=== PATIENT | male | born 1945 | race Native Hawaiian/Other Pacific Islander ===

== ENCOUNTER 2024-12-17 10:43 | Observation (INO) | payer MEDICARE, OTHER ==
--- NOTE | 2024-12-17 11:12 | ED ---
General Adult HPI - General Chief complaint: Chest Pain Stated complaint: Chest Pain Time Seen by Provider: 12/17/24 10:51 Source: patient Mode of arrival: wheelchair Limitations: no limitations - History of Present Illness Initial comments: Dictation was produced using [employer] dictation software. please excuse any grammatical, word or spelling errors. Chief Complaint: 79-year-old male with coronary artery disease presents to the ER for indigestion chest pain History of Present Illness: Patient 79-year-old male who was in court battling for custody of his daughter. States that today started to have some chest pain. He initially thought it was indigestion. Is like a pressure that was nonradiating. Not associate diaphoresis or nausea. Since being in the ER her symptoms have slowly resolved. Patient denies any radiation of symptoms to the extremities. At the bedside he still does have some mild pressure-like sensation to his left lower chest The ROS documented in this emergency department record has been reviewed and confirmed by me. Those systems with pertinent positive or negative responses have been documented in the HPI. All other systems are other negative and/or noncontributory. - Related Data Allergies Allergy/AdvReac Type Severity Reaction Status Date / Time No Known Allergies Allergy Verified 12/17/24 10:49 Review of Systems ROS Statement: Those systems with pertinent positive or pertinent negative responses have been documented in the HPI. ROS Other: All systems not noted in ROS Statement are negative. Past Medical History Past Medical History: Diabetes Mellitus, Hypertension History of Any Multi-Drug Resistant Organisms: None Reported Additional Past Surgical History / Comment(s): open heart Past Psychological History: No Psychological Hx Reported Smoking Status: Never smoker Past Alcohol Use History: None Reported Past Drug Use History: None Reported General Exam - General Exam Comments Initial Comments: PHYSICAL EXAM: General Impression: Alert and oriented x3, not in acute distress HEENT: Normocephalic atraumatic, extra-ocular movements intact, pupils equal and reactive to light bilaterally, mucous membranes moist. Cardiovascular: Heart regular rate and rhythm Chest: Able to complete full sentences, no retractions, no tachypnea Abdomen: abdomen soft, non-tender, non-distended, no organomegaly Musculoskeletal: Pulses present and equal in all extremities, no peripheral edema Motor: no focal deficits noted Neurological: CN II-XII grossly intact, no focal motor or sensory deficits noted Skin: Intact with no visualized rashes Psych: Normal affect and mood Limitations: no limitations Course Vital Signs 12/17/24 10:44 Temperature 97.6 F Pulse Rate 88 Respiratory 18 Rate Blood Pressure 221/118 O2 Sat by Pulse 96 Oximetry EKG Findings - EKG Comments: EKG Findings:: My EKG interpretation: Ventricular rate 76, sinus rhythm, OH 176, QRS 105, QTc 409. No OH prolongation, no QTC prolongation, no ST or T-wave changes noted. Overall, this EKG is unremarkable Medical Decision Making - Medical Decision Making Was pt. sent in by a medical professional or institution (, PA, CARPENTRY SPECIALIST, urgent c are, hospital, or prison...) When possible be specific @ -No Did you speak to anyone other than the patient for history (EMS, parent, family, police, friend...)? What history was obtained from this source @ -No Did you review nursing and triage notes (agree or disagree)? Why? @ -I reviewed and agree with nursing and triage notes Were old charts reviewed (outside hosp., previous admission, EMS record, old EKG, old radiological studies, urgent care reports/EKG's, prison records)? Report findings @ -No old charts were reviewed Differential Diagnosis (chest pain, altered mental status, abdominal pain women, abdominal pain men, vaginal bleeding, musculoskeletal, weakness, fever, dyspnea, syncope, headache, dizziness, GI bleed, back pain, seizure, CVA, palpatations, mental health)? @ -Differential Chest Pain: Stable Angina, Unstable Angina, STEMI, NSTEMI Aortic Dissection, Pneumothorax, Musculoskeletal, Esophageal Spasm GERD, Cholecystitis, Pancreatitis, Zoster, this is not meant to be an all-inclusive list. EKG interpreted by me (3pts min.). @ -See above X-rays interpreted by me (1pt min.). @ -Chest x-ray is nonacute CT interpreted by me (1pt min.). @ -None done U/S interpreted by me (1pt. min.). @ -None done What testing was considered but not performed or refused? (CT, X-rays, U/S, labs)? Why? @ -None What meds were considered but not given or refused? Why? @ -None Was smoking cessation discussed for >3mins.? @ -No Were there social determinants of health that impacted care today? How? (Homelessness, low income, unemployed, alcoholism, drug addiction, transportation, low edu. Level, literacy, decrease access to med. care, nursing home, rehab)? @ -No Was there de-escalation of care discussed even if they declined (Discuss DNR or withdrawal of care, Hospice)? DNR status @ -No What co-morbidities impacted this encounter? (DM, HTN, Smoking, COPD, CAD, Cancer, CVA, ARF, Chemo, Hep., AIDS, mental health diagnosis, sleep apnea, morbid obesity)? @ -Coronary artery disease Was patient admitted / discharged? Hospital course, mention meds given and rou te, prescriptions, significant lab abnormalities, going to OR and other pertinent info. @ -79-year-old male presents with chest pain. Vital signs upon arrival shows blood pressure of 221/118. Patient symptoms are atypical typical features. States that his pain is resolving. At the bedside at 12:40 PM patient states that his pain is completely resolved. No suspicion for acute aortic dissection given that patient is pain-free at this time. EKG is unremarkable. Laboratory evaluation is within acceptable limits. Troponin is negative. Patient with aspirin will be admitted with consultation cardiology. Patient also given magnesium and labetalol. Did you discuss the management of the patient with other professionals (professionals i.e. , PA, CARPENTRY SPECIALIST, lab, RT, psych nurse, medical social worker, sample card maker, teacher, workplace rehabilitation officer, community case manager)? Give summary @ -Case discussed with hospitalist for admission Was critical care preformed (if so, how long)? @ -No Undiagnosed new problem with uncertain prognosis? @ -No Drug Therapy requiring intensive monitoring for toxicity (Heparin, Nitro, Insu namrata, Cardizem)? @ -No Were any procedures done? @ -No Diagnosis/symptom? Acute, or Chronic, or Acute on Chronic? Uncomplicated (without systemic symptoms) or Complicated (systemic symptoms)? @ -Chest pain Side effects of treatment? @ -No Exacerbation, Progression, or Severe Exacerbation? @ -No Poses a threat to life or bodily function? How? (Chest pain, USA, AR, pneumonia, PE, COPD, DKA, ARF, appy, cholecystitis, CVA, Diverticulitis, Homicidal, Suicidal, threat to staff... and all critical care pts) @ -yes - Lab Data Result diagrams: 12/17/24 11:11 12/17/24 11:11 Lab Results 12/17/24 12/17/24 12/17/24 Range/Units 11:11 11:11 11:11 WBC 6.53 (4.50-10.00) 10*3/uL RBC 4.41 (4.40-5.60) 10*6/uL Hgb 14.8 (13.0-17.0) g/dL Hct 40.5 (39.6-50.0) % MCV 91.8 (80.0-97.0) fL MCH 33.6 H (27.0-32.0) pg MCHC 36.5 (32.0-37.0) g/dL Plt Count 125 L (140-440) 10*3/uL MPV 11.1 (9.5-12.2) fL Immature Gran % (Auto) 0.6 % Neutrophils % 80.3 % Lymphocytes % 11.3 % Monocytes % 6.4 % Eosinophils % 0.9 % Basophils % 0.5 % Immature Gran # 0.04 (0.00-0.04) 10*3/uL Neutrophils # 5.24 (1.80-7.70) 10*3/uL Lymphocytes # 0.74 L (0.90-5.00) 10*3/uL Monocytes # 0.42 (0.20-1.00) 10*3/uL Eosinophils # 0.06 (0.04-0.35) 10*3/uL Basophils # 0.03 (0.00-0.10) 10*3/uL Immature Plt Fraction 3.2 (1.1-6.1) % PT 11.7 (10.0-12.5) sec INR 1.1 (<1.2) APTT 24.9 (22.0-30.0) sec Sodium 145 (137-145) mmol/L Potassium 3.8 (3.5-5.1) mmol/L Chloride 109 H (98-107) mmol/L Carbon Dioxide 26 (22-30) mmol/L Anion Gap 10 mmol/L BUN 10 (9-20) mg/dL Creatinine 0.91 (0.66-1.25) mg/dL Est GFR (CKD-EPI)AfAm >90 (>60 ml/min/1.73 sqM) Est GFR (CKD-EPI)NonAf 81 (>60 ml/min/1.73 sqM) Glucose 201 H (74-99) mg/dL Calcium 9.4 (8.4-10.2) mg/dL Magnesium 1.4 L (1.6-2.3) mg/dL Total Bilirubin 2.1 H (0.2-1.3) mg/dL AST 27 (17-59) U/L ALT 26 (4-49) U/L Alkaline Phosphatase 80 (38-126) U/L Troponin I (0.000-0.034) ng/mL Total Protein 7.5 (6.3-8.2) g/dL Albumin 4.7 (3.5-5.0) g/dL 12/17/24 Range/Units 11:11 WBC (4.50-10.00) 10*3/uL RBC (4.40-5.60) 10*6/uL Hgb (13.0-17.0) g/dL Hct (39.6-50.0) % MCV (80.0-97.0) fL MCH (27.0-32.0) pg MCHC (32.0-37.0) g/dL Plt Count (140-440) 10*3/uL MPV (9.5-12.2) fL Immature Gran % (Auto) % Neutrophils % % Lymphocytes % % Monocytes % % Eosinophils % % Basophils % % Immature Gran # (0.00-0.04) 10*3/uL Neutrophils # (1.80-7.70) 10*3/uL Lymphocytes # (0.90-5.00) 10*3/uL Monocytes # (0.20-1.00) 10*3/uL Eosinophils # (0.04-0.35) 10*3/uL Basophils # (0.00-0.10) 10*3/uL Immature Plt Fraction (1.1-6.1) % PT (10.0-12.5) sec INR (<1.2) APTT (22.0-30.0) sec Sodium (137-145) mmol/L Potassium (3.5-5.1) mmol/L Chloride (98-107) mmol/L Carbon Dioxide (22-30) mmol/L Anion Gap mmol/L BUN (9-20) mg/dL Creatinine (0.66-1.25) mg/dL Est GFR (CKD-EPI)AfAm (>60 ml/min/1.73 sqM) Est GFR (CKD-EPI)NonAf (>60 ml/min/1.73 sqM) Glucose (74-99) mg/dL Calcium (8.4-10.2) mg/dL Magnesium (1.6-2.3) mg/dL Total Bilirubin (0.2-1.3) mg/dL AST (17-59) U/L ALT (4-49) U/L Alkaline Phosphatase (38-126) U/L Troponin I <0.012 (0.000-0.034) ng/mL Total Protein (6.3-8.2) g/dL Albumin (3.5-5.0) g/dL Disposition Clinical Impression: Chest pain Disposition: ADMITTED IP TO THIS [facility] Condition: Fair Referrals: None,Stated [Primary Care Provider] - 1-2 days Decision Time: 12:42
[2024-12-17 11:23] LABS: Basophils # (A) 0.03 10*3/uL (0.00-0.10); Basophils % (A) 0.5 %; Eosinophils # (A) 0.06 10*3/uL (0.04-0.35); Eosinophils % (A) 0.9 %; HCT 40.5 % (39.6-50.0); HGB 14.8 g/dL (13.0-17.0); Immature Platelet Fraction 3.2 % (1.1-6.1); Lymphocytes # (A) 0.74 10*3/uL (0.90-5.00); Lymphocytes % (A) 11.3 %; MCH 33.6 pg (27.0-32.0); MCHC 36.5 g/dL (32.0-37.0); MCV 91.8 fL (80.0-97.0); Monocytes # (A) 0.42 10*3/uL (0.20-1.00); Monocytes % (A) 6.4 %; Neutrophils # (A) 5.24 10*3/uL (1.80-7.70); Neutrophils % (A) 80.3 %; Platelet Count 125 10*3/uL (140-440); RBC 4.41 10*6/uL (4.40-5.60); RDW 12.4 % (11.5-14.5); WBC 6.53 10*3/uL (4.50-10.00)
--- NOTE | 2024-12-17 11:28 | XR ---
EXAMINATION TYPE: XR chest 2V DATE OF EXAM: 12/17/2024 11:24 AM COMPARISON: None. CLINICAL INDICATION: Male, 79 years old with history of Chest Pain: Shortness of breath TECHNIQUE: XR chest 2V views of the chest are obtained. FINDINGS: Scattered senescent parenchymal changes noted. Hyperinflation compatible with COPD. No evidence for infiltrate. No evidence for atelectasis. Heart size is stable. Mediastinal structures are stable and grossly unremarkable. No evidence for hilar prominence. Degenerative changes dorsal spine. IMPRESSION: 1. No evidence for acute pulmonary disease. [facility], , 12/17/2024 11:25 AM
[2024-12-17 11:38] LABS: ALT 26 U/L (4-49); AST 27 U/L (17-59); African American GFR (CKD) >90 (>60 ml/min/1.73 sqM); Albumin 4.7 g/dL (3.5-5.0); Alkaline Phosphatase 80 U/L (38-126); Anion Gap 10 mmol/L; Blood Urea Nitrogen 10 mg/dL (9-20); Calcium 9.4 mg/dL (8.4-10.2); Carbon Dioxide 26 mmol/L (22-30); Chloride 109 mmol/L (98-107); Glucose 201 mg/dL (74-99); Magnesium 1.4 mg/dL (1.6-2.3); Non-African American GFR(CKD) 81 (>60 ml/min/1.73 sqM); Potassium 3.8 mmol/L (3.5-5.1); Sodium 145 mmol/L (137-145); Total Protein 7.5 g/dL (6.3-8.2)
[2024-12-17 11:48] LABS: INR 1.1 (<1.2); Partial Thromboplastin Time 24.9 sec (22.0-30.0); Prothrombin Time 11.7 sec (10.0-12.5)
[2024-12-17] MEDS ORDERED: NITROGLYCERIN SL TABS 0.4 MG TAB SUBLINGUAL PRN (12:36)
[2024-12-17] MEDS: ASPIRIN 81 MG PO STA (13:04)
[2024-12-17] MEDS: MAGNESIUM SULFATE-D5W PMX 1 GM in DEXTROSE/WATER 1 100ML.BAG IVPB SCH (13:05)
[2024-12-17] MEDS: LABETALOL 5 MG/ML VIAL MDV IVP STA (13:08)
[2024-12-17] MEDS ORDERED: hydrALAZINE HCL 20 MG/ML 1 ML VIAL IVP PRN (13:54)
[2024-12-17] MEDS ORDERED: DEXTROSE 50% SYRINGE 50 ML IVP PRN ×2 (14:00)
--- NOTE | 2024-12-17 14:35 | P.HPIM ---
History of Present Illness H&P Date: 12/17/24 Patient is a 79-year-old male with past medical history of CAD s/p CABG 2010, hypertension, type II DM, who presented to the ER on 12/17/2024 for chest pain. Patient was in court this morning but pending for custody of his daughter when he developed chest pain, initially linked to indigestion, however, described as pressure-like sensation on the left side of the chest with no radiation, no associated dyspnea, diaphoresis, nausea, vomiting, fever, chills, abdominal pain. It lasted for up to 2 hours and now resolved. He said that he forgot to take his morning medications including blood pressure pills today as he was rushing to the court. Normally his blood pressure running around 110s 120s at home. On arrival afebrile, heart rate in 80s, BP significantly elevated 221/118, SpO2 96% on room air, BP improved to 197/121 after a dose of labetalol. Lab work showed normal WBC and, hemoglobin, platelet count 124, no previous blood work results available. Coagulation panel normal, sodium 145, chloride 109, creatinine 0.91, glucose elevated 201, magnesium low 1.4, total bilirubin elevated 2.1, normal AST, ALT, troponin negative. Pertinent positives and negatives as discussed in HPI, a complete review of systems was performed and all other systems are negative. Patient seen and examined at bedside. Vital signs reviewed General: nontoxic, no distress, appears at stated age Derm: warm, dry Head: atraumatic, normocephalic, symmetric Eyes: EOMI, no lid lag, anicteric sclera, pupils equal round reactive to light ENT: Nose and ears atraumatic Neck: No thyromegaly, supple Mouth: no lip lesion, mucus membranes moist Cardiovascular: S1S2 reg, no murmur, no edema, midline open heart surgery scar Lungs: clear to auscultation bilateral, no rhonchi, no rales, no wheeze, no ac cessory muscle use Abdominal: soft, nontender to palpation, no guarding, no appreciable organomegaly Ext: no gross muscle atrophy, muscle strength muscle strength 5 out of 5 in all 4 extremities, no contractures Neuro: CN II-XII grossly intact Psych: Alert, oriented, appropriate affect Assessment/Plan: Hypertensive urgency Chest pain, likely secondary to above, ACS to rule out Hypertension -Cardiology consulted, appreciate recommendations -Continue telemetry -Trend troponin, D-dimer ordered by ER, pending -Will check A1c, TSH, lipid panel -Medications with lisinopril 10 daily 5 nightly, amlodipine 10 mg p.o. daily to be given now - Continue aspirin 81 mg daily, clopidogrel 75 mg p.o. daily -Oral labetalol 200 mg p.o. 3 times daily as needed for SBP above 180 GERD: Continue famotidine 20 twice daily, Protonix 40 daily Hypomagnesemia: Magnesium replaced in the ER, will recheck in the morning Type II DM -Proceed with Accu-Cheks, hypoglycemia precautions, SSI - Holding home Januvia, metformin, glimepiride Hyperbilirubinemia - Recheck bilirubin fractions in the morning, no abdominal pain, will consider abdominal ultrasound if persistently elevated The patient is admitted with an anticipated less than 2 midnight stay as observation status for evaluation of chest pain, hypertensive urgency. CODE STATUS: Full code DVT prophylaxis: Lovenox Anticipated discharge date: TBD Anticipated discharge place: [facility] A total of 40 minutes was spent on the care of this complex patient more than 50% of the time was spent in counseling and care coordination. Past Medical History Past Medical History: Diabetes Mellitus, Hypertension History of Any Multi-Drug Resistant Organisms: None Reported Additional Past Surgical History / Comment(s): open heart Past Psychological History: No Psychological Hx Reported Smoking Status: Never smoker Past Alcohol Use History: None Reported Past Drug Use History: None Reported Medications and Allergies Home Medications Medication Instructions Recorded Confirmed Type Acetaminophen Tab [Tylenol] 650 mg PO BID 12/17/24 12/17/24 History Aspirin EC [Ecotrin Low Dose] 81 mg PO DAILY 12/17/24 12/17/24 History Atorvastatin [Lipitor] 40 mg PO DAILY 12/17/24 12/17/24 History Clopidogrel [Plavix] 75 mg PO DAILY 12/17/24 12/17/24 History Famotidine 20 mg PO BID 12/17/24 12/17/24 History Glimepiride [Amaryl] 2 mg PO BID 12/17/24 12/17/24 History Multivitamins, Thera [Multivitamin 1 tab PO DAILY 12/17/24 12/17/24 History (formulary)] Pantoprazole [Protonix] 40 mg PO DAILY 12/17/24 12/17/24 History Vitamin B Complex 1 cap PO DAILY 12/17/24 12/17/24 History amLODIPine [Norvasc] 10 mg PO DAILY 12/17/24 12/17/24 History lisinopriL [Zestril] 5 mg PO HS 12/17/24 12/17/24 History lisinopriL [Zestril] 10 mg PO DAILY 12/17/24 12/17/24 History metFORMIN HCL 1,000 mg PO BID 12/17/24 12/17/24 History sitaGLIPtin [Januvia] 100 mg PO DAILY 12/17/24 12/17/24 History Allergies Allergy/AdvReac Type Severity Reaction Status Date / Time No Known Allergies Allergy Verified 12/17/24 13:56 Physical Exam Vitals: Vital Signs Temp Pulse Pulse Resp BP Pulse Ox 12/17/24 13:00 74 18 197/121 98 12/17/24 11:30 68 12/17/24 10:44 97.6 F 88 18 221/118 96 Intake and Output 12/16/24 12/17/24 12/17/24 22:59 06:59 14:59 Other: Weight 73.028 kg Results CBC & Chem 7: 12/17/24 11:11 12/17/24 11:11 Labs: Abnormal Lab Results - Last 24 Hours (Table) 12/17/24 12/17/24 Range/Units 11:11 11:11 MCH 33.6 H (27.0-32.0) pg Plt Count 125 L (140-440) 10*3/uL Lymphocytes # 0.74 L (0.90-5.00) 10*3/uL Chloride 109 H (98-107) mmol/L Glucose 201 H (74-99) mg/dL Magnesium 1.4 L (1.6-2.3) mg/dL Total Bilirubin 2.1 H (0.2-1.3) mg/dL
[2024-12-17] MEDS: amLODIPine 10 MG TAB PO SCH (15:34)
[2024-12-17] MEDS: ATORVASTATIN 40 MG TAB PO SCH (15:34)
[2024-12-17] MEDS: LABETALOL 200 MG TAB PO PRN (16:11)
[2024-12-17 17:23] LABS: Glucose,Whole Blood 229 mg/dL (70-110)
[2024-12-17] MEDS: TAMSULOSIN 0.4 MG CAP.ER.24H PO SCH (17:51)
[2024-12-17] MEDS: INSULIN LISPRO (HumaLOG) 100 UNIT/ML 10 mL VL SQ SCH (17:51)
--- NOTE | 2024-12-17 18:41 | CT ---
EXAMINATION TYPE: CT angio chest CT DLP: 347.9 mGycm, Automated exposure control for dose reduction was used. DATE OF EXAM: 12/17/2024 6:23 PM COMPARISON: Chest radiograph from same day. CLINICAL INDICATION:Male, 79 years old with history of positive D-dimer; ELEVATED D-DIMER TECHNIQUE/CONTRAST: CTA scan of the thorax is performed with IV Contrast, patient injected with 100ml mL of Isovue 370, M IP images are created and reviewed these are created on a separate workstation.. FINDINGS: Pulmonary Artery: There is no evidence for a filling defect within the pulmonary vasculature to sugge st acute pulmonary embolism. The pulmonary artery is of normal size. Lungs/Pleura: No evidence of focal consolidation, pleural effusion or pneumothorax. Bibasilar atelect asis. Airway: Large airways are patent. Heart: Heart is within normal limits for size. Left ventricular hypertrophy is suggested. Severe radha nary artery atherosclerosis. Vasculature: The proximal ascending aorta is mildly dilated measuring up to 4.0 cm in transverse dime nsion. There are advanced atherosclerotic changes. Mediastinum: No gross evidence of adenopathy. Surgical clips are suggested in the left sided mediasti num. Musculoskeletal: No acute osseous abnormalities. Sternotomy wires are present. Soft Tissues/lymph nodes: Mild soft tissue anasarca.. Lower neck: No significant findings. Upper Abdomen: No significant findings. IMPRESSION: 1. No evidence of pulmonary embolism or acute intrathoracic process. 2. Mild dilatation of the proximal ascending aorta measuring up to 4.0 cm with advanced atherosclerot ic changes. Evaluation of the aorta is limited on this study given protocol. 3. Severe coronary artery atherosclerosis. [facility], , 12/17/2024 6:38 PM
[2024-12-17 21:13] LABS: Glucose,Whole Blood 195 mg/dL (70-110)
[2024-12-17] MEDS: FAMOTIDINE 20 MG TAB PO SCH (21:22)
[2024-12-18 06:10] LABS: Glucose,Whole Blood 153 mg/dL (70-110)
[2024-12-18 07:26] VITALS: RESP 16
[2024-12-18 07:41] LABS: Cholesterol 89.00 mg/dL (0.00-200.00); HDL Cholesterol 28.20 mg/dL (40.00-60.00); Triglycerides 110.00 mg/dL (0.00-149.00); VLDL Calculation 22.00 mg/dL (5.00-40.00)
[2024-12-18 07:42] LABS: Anion Gap 15.20 mmol/L (4.00-12.00); BUN/Creat Ratio 10.75 Ratio (12.00-20.00); Bilirubin,Unconjugated 0.72 mg/dL (0.20-1.00); Blood Urea Nitrogen 17.2 mg/dL (9.0-27.0); Calcium 8.9 mg/dL (8.7-10.3); Carbon Dioxide 24.8 mmol/L (21.6-31.8); Chloride 107 mmol/L (96-109); Glucose 154 mg/dL (70-110); LDL Cholesterol,Calculated 38.8 mg/dL (0.0-131.0); Magnesium 2.0 mg/dL (1.5-2.4); Potassium 3.8 mmol/L (3.5-5.5); Sodium 147 mmol/L (135-145)
[2024-12-18 07:47] LABS: Basophils # (A) 0.04 X 10*3/uL (0.00-0.10); Basophils % (A) 0.5 %; Eosinophils # (A) 0.04 X 10*3/uL (0.04-0.35); Eosinophils % (A) 0.5 %; HCT 36.4 % (39.6-50.0); HGB 12.8 g/dL (13.0-17.0); Immature Grans, Automated 0.40 %; Lymphocytes # (A) 1.14 X 10*3/uL (0.90-5.00); Lymphocytes % (A) 14.3 %; MCH 33.0 pg (27.0-32.0); MCHC 35.2 g/dL (32.0-37.0); MCV 93.8 FL (80.0-97.0); Monocytes # (A) 0.68 X 10*3/uL (0.20-1.00); Monocytes % (A) 8.5 %; NRBC Per 100 WBC 0 X 10*3/uL (0.00-0.01); Neutrophils # (A) 6.05 X 10*3/uL (1.80-7.70); Neutrophils % (A) 75.8 %; Platelet Count 128 X 10*3/uL (140-440); RBC 3.88 X 10*6/uL (4.40-5.60); RDW 13.1 % (11.5-14.5); WBC 7.98 X 10*3/uL (4.50-10.00)
[2024-12-18] MEDS: PANTOPRAZOLE 40 MG TABLET PO SCH (08:54)
[2024-12-18] MEDS: ASPIRIN 81 MG PO SCH (08:54)
[2024-12-18] MEDS: CLOPIDOGREL 75 MG TAB PO SCH (08:54)
[2024-12-18] MEDS ORDERED: ASPIRIN 325 MG TAB PO SCH (09:00)
--- NOTE | 2024-12-18 11:13 | P.CRDCN ---
History of Present Illness History of present illness: HISTORY OF PRESENT ILLNESS: This is a 79-year-old male with a past medical history significant for coronary artery disease with previous CABG, hypertension, hyperlipidemia, and diabetes. Patient does not follow with a research support specialist. We have been asked to see the patient in consultation for chest pain. Patient examined at the bedside. Patient was at core yesterday with his daughter when he began to have some chest discomfort. The patient had not taken any of his medications. He denied any radiation of the pain. Denied any shortness of breath. Patient was found to have extremely elevated blood pressures with a systolic greater than 200 upon admission to the hospital. His blood pressure is now well-controlled and he is had no further episodes of chest pain or pressure. DIAGNOSTICS: - EKG reveals sinus mechanism with nonspecific ST-T wave changes. - Chest xray negative for acute pulmonary process. - Laboratory data: Troponin negative x 3 - Current home cardiac medications include lisinopril 10 mg in the morning and 5 mg at night, amlodipine 10 mg daily, Plavix 75 mg daily, Lipitor 40 mg daily, aspirin 81 mg daily. -No previous echocardiogram, stress test, or cardiac catheterization available in EMR for review REVIEW OF SYSTEMS: At the time of my exam: CONSTITUTIONAL: Denies fever or chills. HEENT: Denies blurred vision, vision changes, or eye pain. Denies hemoptysis CARDIOVASCULAR: Denies chest pain. Denies orthopnea. Denies PND. Denies palpitations RESPIRATORY: Denies shortness of breath. GASTROINTESTINAL: Denies abdominal pain. Denies nausea or vomiting. HEMATOLOGIC: Denies bleeding disorders. GENITOURINARY: Denies any blood in urine. SKIN: Denies pruitis. Denies rash. PHYSICAL EXAM: VITAL SIGNS: Reviewed. GENERAL: Well-developed in no acute distress. HEENT: Head is normocephalic. Pupils are equal, round. Sclerae anicteric. Mucous membranes of the mouth are moist. Neck supple. No JVD or thyromegaly LUNGS: Respirations even and unlabored. Lungs essentially clear to auscultation bilaterally. HEART: Regular rate and rhythm. S1 and S2 heard. ABDOMEN: Soft. Nondistended. Nontender. EXTREMITIES: Normal range of motion. No clubbing or cyanosis. Peripheral pulses intact. No lower extremity edema NEUROLOGIC: Awake and alert. Oriented x 3. ASSESSMENT: Chest pain, troponin negative x 3 Hypertensive urgency, resolved Coronary artery disease with previous CABG History of hypertension History of hyper lipidemia History of diabetes PLAN: An acute coronary event has been ruled out Obtain 2D echo to assess cardiac structure and function Resume home cardiac medications Continue to monitor blood pressure Will plan for outpatient stress testing Patient may be discharged home pending echo results Patient to follow-up in the office with Dr. Uriostegui Nurse practitioner note has been reviewed by physician. Signing provider agrees with the documented findings, assessment, and plan of care documented by INSPECTOR FINAL [employer]SEM[employer] CONVEYOR [employer] as a scribe. Past Medical History Past Medical History: Diabetes Mellitus, Hypertension History of Any Multi-Drug Resistant Organisms: None Reported Past Surgical History: Coronary Bypass/CABG Additional Past Surgical History / Comment(s): open heart 2010 Past Psychological History: No Psychological Hx Reported Smoking Status: Never smoker Past Alcohol Use History: None Reported Past Drug Use History: None Reported Medications and Allergies Home Medications Medication Instructions Recorded Confirmed Type Acetaminophen Tab [Tylenol] 650 mg PO BID 12/17/24 12/17/24 History Alfuzosin HCl [Alfuzosin HCl ER] 10 mg PO HS 12/17/24 12/17/24 History Aspirin EC [Ecotrin Low Dose] 81 mg PO DAILY 12/17/24 12/17/24 History Atorvastatin [Lipitor] 40 mg PO DAILY 12/17/24 12/17/24 History Clopidogrel [Plavix] 75 mg PO DAILY 12/17/24 12/17/24 History Famotidine 20 mg PO BID 12/17/24 12/17/24 History Glimepiride [Amaryl] 2 mg PO BID 12/17/24 12/17/24 History Multivitamins, Thera [Multivitamin 1 tab PO DAILY 12/17/24 12/17/24 History (formulary)] Pantoprazole [Protonix] 40 mg PO DAILY 12/17/24 12/17/24 History Vitamin B Complex 1 cap PO DAILY 12/17/24 12/17/24 History amLODIPine [Norvasc] 10 mg PO DAILY 12/17/24 12/17/24 History lisinopriL [Zestril] 5 mg PO HS 12/17/24 12/17/24 History lisinopriL [Zestril] 10 mg PO DAILY 12/17/24 12/17/24 History metFORMIN HCL 1,000 mg PO BID 12/17/24 12/17/24 History sitaGLIPtin [Januvia] 100 mg PO DAILY 12/17/24 12/17/24 History Allergies Allergy/AdvReac Type Severity Reaction Status Date / Time No Known Allergies Allergy Verified 12/17/24 13:56 Physical Exam Vitals: Vital Signs Temp Pulse Pulse Pulse Resp BP BP 12/18/24 07:00 98.3 F 69 16 117/63 12/18/24 00:30 98.1 F 65 17 108/60 12/17/24 23:44 71 18 94/54 12/17/24 21:17 61 18 104/59 12/17/24 18:34 62 18 111/62 12/17/24 17:44 55 L 18 113/80 12/17/24 17:05 63 18 201/109 12/17/24 16:08 80 18 212/129 12/17/24 15:25 71 18 206/95 12/17/24 14:52 65 18 155/109 12/17/24 14:00 66 18 12/17/24 13:00 74 18 197/121 12/17/24 11:30 68 12/17/24 10:44 97.6 F 88 18 221/118 Pulse Ox 12/18/24 07:00 97 12/18/24 00:30 97 12/17/24 23:44 94 L 12/17/24 21:17 94 L 12/17/24 18:34 97 12/17/24 17:44 97 12/17/24 17:05 97 12/17/24 16:08 12/17/24 15:25 97 12/17/24 14:52 97 12/17/24 14:00 12/17/24 13:00 98 12/17/24 11:30 12/17/24 10:44 96 Intake and Output 12/17/24 12/18/24 12/18/24 22:59 06:59 14:59 Other: Voiding Method Toilet # Voids 2 Weight 73.028 kg Results 12/18/24 04:42 12/18/24 04:42 Cardiac Enzymes 12/17/24 12/17/24 12/17/24 Range/Units 11:11 11:11 12:52 AST 27 (17-59) U/L Troponin I <0.012 <0.012 (0.000-0.034) ng/mL 12/17/24 Range/Units 17:20 AST (17-59) U/L Troponin I <0.012 (0.000-0.034) ng/mL Coagulation 12/17/24 Range/Units 11:11 PT 11.7 (10.0-12.5) sec APTT 24.9 (22.0-30.0) sec Lipids 12/18/24 Range/Units 04:42 Triglycerides 110.00 (0.00-149.00) mg/dL Cholesterol 89.00 (0.00-200.00) mg/dL HDL Cholesterol 28.20 L (40.00-60.00) mg/dL Cholesterol/HDL Ratio 3.16 Ratio CBC 12/17/24 12/18/24 Range/Units 11:11 04:42 WBC 6.53 7.98 (4.50-10.00) 10*3/uL RBC 4.41 3.88 L (4.40-5.60) 10*6/uL Hgb 14.8 12.8 L (13.0-17.0) g/dL Hct 40.5 36.4 L (39.6-50.0) % Plt Count 125 L 128 L (140-440) 10*3/uL Comprehensive Metabolic Panel 12/17/24 12/18/24 Range/Units 11:11 04:42 Sodium 145 147 H (137-145) mmol/L Potassium 3.8 3.8 (3.5-5.1) mmol/L Chloride 109 H 107 (98-107) mmol/L Carbon Dioxide 26 24.8 (22-30) mmol/L BUN 10 17.2 (9-20) mg/dL Creatinine 0.91 1.6 H (0.66-1.25) mg/dL Glucose 201 H 154 H (74-99) mg/dL Calcium 9.4 8.9 (8.4-10.2) mg/dL Unconjugated Bilirubin 0.72 (0.20-1.00) mg/dL AST 27 (17-59) U/L ALT 26 (4-49) U/L Alkaline Phosphatase 80 (38-126) U/L Total Protein 7.5 (6.3-8.2) g/dL Albumin 4.7 (3.5-5.0) g/dL Current Medications Generic Name Dose Route Start Last Admin Trade Name Jayda PRN Reason Stop Dose Admin Amlodipine Besylate 10 mg 12/17/24 14:45 12/18/24 08:54 Amlodipine 10 Mg Tab PO 10 mg DAILY LLUVIA Administration Aspirin 81 mg 12/18/24 09:00 12/18/24 08:54 Aspirin 81 Mg PO 81 mg DAILY LLUVIA Administration Atorvastatin Calcium 40 mg 12/17/24 14:45 12/18/24 08:54 Atorvastatin 40 Mg Tab PO 40 mg DAILY LLUVIA Administration Clopidogrel Bisulfate 75 mg 12/18/24 09:00 12/18/24 08:54 Clopidogrel 75 Mg Tab PO 75 mg DAILY LLUVIA Administration Dextrose/Water 25 ml 12/17/24 14:00 Dextrose 50% Syringe 50 Ml IVP PER PROTOCOL PRN Hypoglycemia Protocol Dextrose/Water 50 ml 12/17/24 14:00 Dextrose 50% Syringe 50 Ml IVP PER PROTOCOL PRN Hypoglycemia Protocol Famotidine 20 mg 12/17/24 21:00 12/18/24 08:54 Famotidine 20 Mg Tab PO 20 mg BID LLUVIA Administration Insulin Human Lispro 0 unit 12/17/24 17:30 12/18/24 06:19 Insulin Lispro (Humalog) 100 Unit/Ml 10 Ml Vl SQ Not Given ACHS LLUVIA Protocol Labetalol HCl 200 mg 12/17/24 14:32 12/17/24 16:11 Labetalol 200 Mg Tab PO 200 mg TID PRN Administration Blood Pressure - High Lisinopril 5 mg 12/17/24 21:00 12/17/24 21:22 Lisinopril 5 Mg Tab PO 5 mg HS LLUVIA Administration Lisinopril 10 mg 12/17/24 14:45 12/18/24 08:54 Lisinopril 10 Mg Tab PO 10 mg DAILY LLUVIA Administration Nitroglycerin 0.4 mg 12/17/24 12:36 Nitroglycerin Sl Tabs 0.4 Mg Tab SUBLINGUAL Q5M PRN Chest Pain Pantoprazole Sodium 40 mg 12/18/24 09:00 12/18/24 08:54 Pantoprazole 40 Mg Tablet PO 40 mg DAILY LLUVIA Administration Tamsulosin HCl 0.4 mg 12/17/24 18:30 12/17/24 17:51 Tamsulosin 0.4 Mg Cap.Er.24h PO 0.4 mg PC-SUPPER LLUVIA Administration Intake and Output 06/30/25 07/01/25 07/01/25 22:59 06:59 14:59 Other: Voiding Method Toilet # Voids 2 Weight 73.028 kg 12/18/24 04:42 12/18/24 04:42
[2024-12-18 12:08] LABS: Glucose,Whole Blood 212 mg/dL (70-110)
[2024-12-18 17:28] LABS: Glucose,Whole Blood 225 mg/dL (70-110)
--- NOTE | 2024-12-18 18:16 | P.PN ---
Subjective Progress Note Date: 12/18/24 Hospital course: Patient is a very pleasant 79-year-old male with a past medical history of CAD status post CABG, hypertension, hyperlipidemia, GERD, and BPH. He presented to the emergency department on 12/17/2024 with a chief complaint of chest pain. Patient reports that he has been under increased stress after losing his of 55 years last month and stated he was in court for his daughter when he developed pain to his midsternal chest radiating into the left anterior chest described as a constant pressure. Upon arrival to our facility, patient underwent evaluation in the emergency department. Vital signs upon arrival show blood pressure 221/118, heart rate 88, respiratory rate 18, temp 97.6 F, and SpO2 of 96% on room air. EKG was completed showing sinus mechanism at 76 bpm w ith T wave inversion in lateral lead aVL. Chest x-ray negative for acute cardiopulmonary process. Labs completed and reviewed. CBC showing thrombocytopenia with platelet count of 125. Coagulation profile showing elevated D-dimer of 0.92. BMP showing hyperchloremia with chloride of 109 otherwise normal findings. Blood glucose was elevated at 201. Calcium 9.4. Magnesium was low at 1.4. Liver profile showing hyperbilirubinemia with total bili of 2.1 otherwise normal findings. Troponin was less than 0.012 and TSH was normal findings at 0.884. Magnesium was replaced and hypertensive urgency was treated with labetalol. Patient admitted under our services with consultation to cardiology. Physical exam: Patient seen and fully evaluated at bedside this morning. Patient sitting up on edge of bed reports chest pain has fully resolved. He denies having any palpitations, shortness of breath, exertional dyspnea, or any other complaints at this time. Vital signs reviewed and stable. General: Nontoxic, no distress and appears stated age. Derm: Skin warm and dry, normal coloration for ethnicity. Head: Atraumatic, normocephalic and symmetric. Eyes: EOM's intact, no lid lag, and anicteric sclera Mouth: no lip lesions, mucus membranes moist Cardiovascular: regular rate and rhythm with normal S1S2, no murmur, positive posterior tibial pulses bilaterally, and cap refill < 2 seconds. Lungs: Respirations even, regular, and unlabored on room air. Lungs CTA bilaterally, no rhonchi, no rales, no wheezing, and no accessory muscle usage. Abdominal: soft, nontender to palpation, no guarding, no appreciable organomegaly Ext: ROM intact. No gross muscle atrophy, no edema, no contractures Neuro: Speech clear, face symmetrical and CN II-XII grossly intact with no noted focal neuro deficits Psych: Alert and oriented to person, place, time, and situation. Appropriate and pleasant affect. Assessment and Plan of Care: Chest pain, acute coronary event ruled out Hypertensive urgency -Cardiology following stating pending completion of echocardiogram if normal patient cleared from their perspective for discharge. -Telemetry monitoring - Troponins trended all negative at less than 0.012 x 3 draws -Continue cardiac medication regimen with aspirin 81 mg daily, atorvastatin 40 mg daily, Plavix 75 mg daily, lisinopril 5 mg nightly and 10 mg daily and amlodipine 10 mg daily. 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 Continue glycemic protocol with NovoLog sliding scale. Hypomagnesemia -Magnesium was 1.4 upon arrival and was replaced. Hypomagnesemia resolved with repeat morning magnesium of 2.0. Hyperbilirubinemia, resolved -Bilirubin upon arrival 2.1 with repeat morning bilirubin of 1.2, conjugated bilirubin of 0.48, and unconjugated bilirubin of 0.72. Data and imaging reviewed: Labs reviewed. Troponins trended all negative at less than 0.012 x 3 draws. TSH normal findings at 0.084. CBC unremarkable. BMP unremarkable. Magnesium 2.0. Hyperbilirubinemia resolved with initial bilirubin of 2.1 and repeat morning bili of 1.2. Vital signs reviewed. Blood pressure 161/92, heart rate 80, respiratory rate 16, temp 97.8 F, and SpO2 of 97% on room air. CODE STATUS: Full code DVT prophylaxis: Lovenox Anticipated discharge date: Pending completion of echocardiogram Anticipated discharge place: Home Patient was seen independently by Nurse Pracitioner. This document was prepared using [employer] dictation software. Please allow for errors in engine tester, while rare they do occur. [place] NP rendered care for this patient independently, reviewed the findings and plan as documented in the note above and agree with plan. I did not physically speak with or examine the patient on this date. Objective - Vital Signs Vital signs: Vital Signs Temp 98.3 F 12/18/24 07:00 Pulse 69 12/18/24 07:00 Resp 16 12/18/24 07:00 BP 117/63 12/18/24 07:00 Pulse Ox 97 12/18/24 07:00 FiO2 Intake & Output 12/17/24 12/18/24 12/18/24 18:59 06:59 18:59 Weight 73.028 kg 73.028 kg Other: Voiding Method Toilet # Voids 2 - Labs CBC & Chem 7: 12/18/24 04:42 12/18/24 04:42 Labs: Abnormal Lab Results - Last 24 Hours (Table) 12/17/24 12/17/24 12/17/24 Range/Units 11:11 11:11 11:11 RBC (4.40-5.60) X 10*6/uL Hgb (13.0-17.0) g/dL Hct (39.6-50.0) % MCH 33.6 H (27.0-32.0) pg Plt Count 125 L (140-440) 10*3/uL Lymphocytes # 0.74 L (0.90-5.00) 10*3/uL D-Dimer 0.92 H (<0.60) mg/L FEU Sodium (135-145) mmol/L Chloride 109 H (98-107) mmol/L Anion Gap (4.00-12.00) mmol/L Creatinine (0.6-1.5) mg/dL Est GFR (CKD-EPI) (>=60) BUN/Creatinine Ratio (12.00-20.00) Ratio Glucose 201 H (74-99) mg/dL POC Glucose (mg/dL) (70-110) mg/dL Hemoglobin A1c (<=6.0) % Magnesium 1.4 L (1.6-2.3) mg/dL Total Bilirubin 2.1 H (0.2-1.3) mg/dL Conjugated Bilirubin (0.20-0.40) mg/dL HDL Cholesterol (40.00-60.00) mg/dL 12/17/24 12/17/24 12/17/24 Range/Units 14:29 17:22 21:10 RBC (4.40-5.60) X 10*6/uL Hgb (13.0-17.0) g/dL Hct (39.6-50.0) % MCH (27.0-32.0) pg Plt Count (140-440) 10*3/uL Lymphocytes # (0.90-5.00) 10*3/uL D-Dimer (<0.60) mg/L FEU Sodium (135-145) mmol/L Chloride (98-107) mmol/L Anion Gap (4.00-12.00) mmol/L Creatinine (0.6-1.5) mg/dL Est GFR (CKD-EPI) (>=60) BUN/Creatinine Ratio (12.00-20.00) Ratio Glucose (74-99) mg/dL POC Glucose (mg/dL) 229 H 195 H (70-110) mg/dL Hemoglobin A1c 6.3 H (<=6.0) % Magnesium (1.6-2.3) mg/dL Total Bilirubin (0.2-1.3) mg/dL Conjugated Bilirubin (0.20-0.40) mg/dL HDL Cholesterol (40.00-60.00) mg/dL 12/18/24 12/18/24 12/18/24 Range/Units 04:42 04:42 04:42 RBC 3.88 L (4.40-5.60) X 10*6/uL Hgb 12.8 L (13.0-17.0) g/dL Hct 36.4 L (39.6-50.0) % MCH 33.0 H (27.0-32.0) pg Plt Count 128 L (140-440) 10*3/uL Lymphocytes # (0.90-5.00) 10*3/uL D-Dimer (<0.60) mg/L FEU Sodium 147 H (135-145) mmol/L Chloride (98-107) mmol/L Anion Gap 15.20 H (4.00-12.00) mmol/L Creatinine 1.6 H (0.6-1.5) mg/dL Est GFR (CKD-EPI) 44 L (>=60) BUN/Creatinine Ratio 10.75 L (12.00-20.00) Ratio Glucose 154 H (74-99) mg/dL POC Glucose (mg/dL) (70-110) mg/dL Hemoglobin A1c (<=6.0) % Magnesium (1.6-2.3) mg/dL Total Bilirubin (0.2-1.3) mg/dL Conjugated Bilirubin 0.48 H (0.20-0.40) mg/dL HDL Cholesterol 28.20 L (40.00-60.00) mg/dL 12/18/24 Range/Units 06:08 RBC (4.40-5.60) X 10*6/uL Hgb (13.0-17.0) g/dL Hct (39.6-50.0) % MCH (27.0-32.0) pg Plt Count (140-440) 10*3/uL Lymphocytes # (0.90-5.00) 10*3/uL D-Dimer (<0.60) mg/L FEU Sodium (135-145) mmol/L Chloride (98-107) mmol/L Anion Gap (4.00-12.00) mmol/L Creatinine (0.6-1.5) mg/dL Est GFR (CKD-EPI) (>=60) BUN/Creatinine Ratio (12.00-20.00) Ratio Glucose (74-99) mg/dL POC Glucose (mg/dL) 153 H (70-110) mg/dL Hemoglobin A1c (<=6.0) % Magnesium (1.6-2.3) mg/dL Total Bilirubin (0.2-1.3) mg/dL Conjugated Bilirubin (0.20-0.40) mg/dL HDL Cholesterol (40.00-60.00) mg/dL
[2024-12-18] MEDS ORDERED: NON FORMULARY DRUG (Alfuzosin Hcl [Alfuzosin Hcl Er] 10 MG Tab.Er.24h) PO SCH (21:00)
[2024-12-18 21:06] LABS: Glucose,Whole Blood 191 mg/dL (70-110)
[2024-12-19 05:54] LABS: Glucose,Whole Blood 164 mg/dL (70-110)
[2024-12-19 07:12] VITALS: BP 119/62; PULSE 67; TEMP 98.3
[2024-12-19] MEDS: ENOXAPARIN 40 MG/0.4 ML SYRINGE SQ SCH (08:44)
[2024-12-19] MEDS: FAMOTIDINE 20 MG TAB PO SCH (08:45)
--- NOTE | 2024-12-19 09:46 | CA ---
Transthoracic Echo Report Name: Tereso Fu Age: 79 Gender: M : 1945 Exam Date: 12/18/2024 14:28 Exam Location: [facility] Ht (in): 67 Wt (lb): 161 Ordering Physician: Flavia Ayala Attending/Referring Phys: [id number], Jamie Polymer Chemist Marilyn Caballero, CANDICE Procedure CPT: Indications: CP, HTN, awaiting DC Cardiac Hx: Technical Quality: Fair Contrast 1: Total Dose (mL): Contrast 2: Total Dose (mL): MEASUREMENTS (Male / Female) Normal Values 2D ECHO LV Diastolic Diameter PLAX 4.1 cm 4.2 - 5.9 / 3.9 - 5.3 cm LV Systolic Diameter PLAX 2.6 cm IVS Diastolic Thickness 1.3 cm 0.6 - 1.0 / 0.6 - 0.9 cm LVPW Diastolic Thickness 1.7 cm 0.6 - 1.0 / 0.6 - 0.9 cm LV Relative Wall Thickness 0.7 RV Internal Dim ED PLAX 2.5 cm LVOT Diameter 2.3 cm LA Systolic Diameter LX 4.6 cm 3.0 - 4.0 / 2.7 - 3.8 cm LV Diastolic Volume MOD BP 60.9 cm??? 67 - 155 / 56 - 104 cm??? LV Systolic Volume MOD BP 35.3 cm??? 22 - 58 / 19 - 49 cm??? LV Ejection Fraction MOD BP 42.0 % >= 55 % LV Cardiac Index MOD BP 972.7 cm???/min???m??? LV Diastolic Volume MOD 4C 66.6 cm??? LV Systolic Volume MOD 4C 36.3 cm??? LV Ejection Fraction MOD 4C 45.4 % LV Cardiac Index MOD 4C 1149.1 cm???/min???m??? LV Diastolic Length 4C 7.5 cm LV Systolic Length 4C 6.2 cm LV Diastolic Volume MOD 2C 52.6 cm??? LV Systolic Volume MOD 2C 27.5 cm??? LV Ejection Fraction MOD 2C 47.6 % LV Cardiac Index MOD 2C 952.5 cm???/min???m??? LV Diastolic Length 2C 7.1 cm LV Systolic Length 2C 6.4 cm M-MODE Aortic Root Diameter MM 3.7 cm LA Systolic Diameter MM 4.3 cm LA Ao Ratio MM 1.1 AV Cusp Separation MM 1.0 cm DOPPLER AV Peak Velocity 327.0 cm/s AV Peak Gradient 49.6 mmHg AV Mean Velocity 250.1 cm/s AV Mean Gradient 30.9 mmHg AV Velocity Time Integral 70.2 cm AI Peak Velocity 314.8 cm/s AI Peak Gradient 39.7 mmHg AI Pressure Half Time 574.4 ms LVOT Peak Velocity 94.5 cm/s LVOT Peak Gradient 3.6 mmHg LVOT Velocity Time Integral 22.7 cm LVOT Stroke Volume 91.1 cm??? LVOT Stroke Volume Index 49.4 ml/m??? LVOT Cardiac Index 3461.3 cm???/min???m??? AV Area Cont Eq vti 1.3 cm??? AV Area Cont Eq pk 1.2 cm??? Mitral E Point Velocity 84.8 cm/s Mitral A Point Velocity 110.6 cm/s Mitral E to A Ratio 0.8 MV Deceleration Time 249.4 ms MV E' Velocity 6.0 cm/s Mitral E to MV E' Ratio 14.2 TR Peak Velocity 182.7 cm/s TR Peak Gradient 13.4 mmHg FINDINGS Left Ventricle Left ventricular ejection fraction is estimated at 55-60%. Mildly increased septal wall thickness. Normal left ventricular systolic function with no obvious regional wall motion abnormalities. Moderate concentric left ventricular hypertrophy. Right Ventricle Normal right ventricular size and function. Right ventricular systolic pressure within normal limits. Right Atrium Mild right atrial dilatation. Left Atrium Mildly increased left atrial diameter. Mitral Valve Structurally normal mitral valve. Mild mitral regurgitation. No mitral stenosis. Aortic Valve Moderate aortic stenosis with a peak gradient of 50mmHg and a mean gradient of 31 mmHg. Mild aortic regurgitation. Tricuspid Valve Structurally normal tricuspid valve. No tricuspid stenosis. Mild tricuspid regurgitation. Pulmonic Valve Structurally normal pulmonic valve. Trace pulmonic regurgitation. No pulmonic stenosis. Pericardium No pericardial or pleural effusion. Aorta Aorta at the level of the sinuses of valsalva (root) normal. CONCLUSIONS Normal LV function Mild mitral regurgitation Moderate aortic stenosis Previewed by: Dr. Juan Uriostegui MD (Electronically Signed) Final Date: 19 December 2024 09:45
--- NOTE | 2024-12-19 11:44 | P.PN ---
Subjective HISTORY OF PRESENT ILLNESS: This is a 79-year-old male with a past medical history significant for coronary artery disease with previous CABG, hypertension, hyperlipidemia, and diabetes. Patient does not follow with a grain broker. We have been asked to see the patient in consultation for chest pain. Patient examined at the bedside. Patient was at core yesterday with his daughter when he began to have some chest discomfort. The patient had not taken any of his medications. He denied any radiation of the pain. Denied any shortness of breath. Patient was found to have extremely elevated blood pressures with a systolic greater than 200 upon admission to the hospital. His blood pressure is now well-controlled and he is had no further episodes of chest pain or pressure. DIAGNOSTICS: - EKG reveals sinus mechanism with nonspecific ST-T wave changes. - Chest xray negative for acute pulmonary process. - Laboratory data: Troponin negative x 3 - Current home cardiac medications include lisinopril 10 mg in the morning and 5 mg at night, amlodipine 10 mg daily, Plavix 75 mg daily, Lipitor 40 mg daily, aspirin 81 mg daily. -No previous echocardiogram, stress test, or cardiac catheterization available in EMR for review 12/19/2024 Patient examined at bedside. Patient without complaint of chest pain or pressure. Denies shortness of breath. Vital signs are stable. Echocardiogram completed revealing ejection fraction 55 to 60% with moderate aortic stenosis PHYSICAL EXAM: VITAL SIGNS: Reviewed. GENERAL: Well-developed in no acute distress. HEENT: Head is normocephalic. Pupils are equal, round. Sclerae anicteric. Mucous membranes of the mouth are moist. Neck supple. No JVD or thyromegaly LUNGS: Respirations even and unlabored. Lungs essentially clear to auscultation bilaterally. HEART: Regular rate and rhythm. S1 and S2 heard. ABDOMEN: Soft. Nondistended. Nontender. EXTREMITIES: Normal range of motion. No clubbing or cyanosis. Peripheral pulses intact. No lower extremity edema NEUROLOGIC: Awake and alert. Oriented x 3. ASSESSMENT: Chest pain, troponin negative x 3 Hypertensive urgency, resolved Coronary artery disease with previous CABG History of hypertension History of hyper lipidemia History of diabetes Moderate aortic stenosis PLAN: An acute coronary event has been ruled out Continue to monitor blood pressure Will plan for outpatient stress testing Patient may be discharged home today from a cardiac standpoint Patient to follow-up with his primary grain broker Nurse practitioner note has been reviewed by physician. Signing provider agrees with the documented findings, assessment, and plan of care documented by AUTOC[employer] DETAILER as a scribe. Objective - Vital Signs Vital signs: Vital Signs Temp 98.3 F 12/19/24 07:00 Pulse 67 12/19/24 07:00 Resp 16 12/19/24 07:00 BP 119/62 12/19/24 07:00 Pulse Ox 97 12/19/24 07:00 FiO2 Intake & Output 12/18/24 12/19/24 12/19/24 18:59 06:59 18:59 Intake Total 118 Balance 118 Intake: Oral 118 Other: Voiding Method Toilet # Voids 2 1 1 - Labs CBC & Chem 7: 12/18/24 04:42 12/18/24 04:42 Labs: Abnormal Lab Results - Last 24 Hours (Table) 12/18/24 12/18/24 12/18/24 Range/Units 12:07 17:26 21:04 POC Glucose (mg/dL) 212 H 225 H 191 H (70-110) mg/dL 12/19/24 Range/Units 05:53 POC Glucose (mg/dL) 164 H (70-110) mg/dL
--- NOTE | 2024-12-19 18:05 | P.DS ---
Providers Date of admission: 12/17/24 12:37 Expected date of discharge: 12/19/24 Attending physician: Lalo Rolle MD Consults: 12/17/24 12:36 Consult Physician Urgent Consulting Provider: Kyaw Covarrubias Consult Reason/Comments: chest pain Do you want consulting provider notified?: Yes Primary care physician: Stated None Hospital Course: Discharge Diagnosis: Chest pain, acute coronary event ruled out. Troponins trended all negative at less than 0.012 x 3 draws. Echocardiogram was completed showing a preserved EF of 55 to 60% with mild mitral regurgitation and moderate aortic stenosis. Patient was evaluated by electric mule operator and cleared from cardiac standpoint for discharge recommending outpatient follow-up in their office in 1 week. Hypertensive urgency. Resolved. Blood pressure 119/62 with heart rate of 67 on discharge. Patient to continue lisinopril 10 mg daily and 5 mg nightly along with amlodipine 10 mg daily. 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 Continue glycemic protocol with NovoLog sliding scale. Hypomagnesemia. Resolved. Magnesium was 1.4 upon arrival and was replaced. Hypomagnesemia resolved with repeat morning magnesium of 2.0. Hyperbilirubinemia, resolved. Bilirubin upon arrival 2.1 with repeat morning bilirubin of 1.2, conjugated bilirubin of 0.48, and unconjugated bilirubin of 0.72. Hospital Course: Patient is a very pleasant 79-year-old male with a past medical history of CAD status post CABG, hypertension, hyperlipidemia, GERD, and BPH. He presented to the emergency department on 12/17/2024 with a chief complaint of chest pain. Patient reports that he has been under increased stress after losing his of 55 years last month and stated he was in court for his daughter when he developed pain to his midsternal chest radiating into the left anterior chest described as a constant pressure. Upon arrival to our facility, patient underwent evaluation in the emergency department. Vital signs upon arrival show blood pressure 221/118, heart rate 88, respiratory rate 18, temp 97.6 F, and SpO2 of 96% on room air. EKG was completed showing sinus mechanism at 76 bpm with T wave inversion in lateral lead aVL. Chest x-ray negative for acute cardiopulmonary process. Labs completed and reviewed. 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 Coagulation profile showing elevated D-dimer of 0.92. BMP showing hyperchloremia with chloride of 109 otherwise normal findings. Blood glucose was elevated at 201. Calcium 9.4. Magnesium was low at 1.4. Liver profile showing hyperbilirubinemia with total bili of 2.1 otherwise normal findings. Troponin was less than 0.012 and TSH was normal findings at 0.884. Magnesium was replaced and hypertensive urgency was treated with labetalol. Patient admitted under our services with consultation to cardiology. Patient had full resolution of chest pain and denied any other associated symptoms. Troponins trended all negative at less than 0.012 x 3 draws. Echocardiogram was completed showing a preserved EF of 55 to 60% with mild mitral regurgitation and moderate aortic stenosis. Patient was evaluated by electric mule operator and cleared from cardiac standpoint for discharge recommending outpatient follow-up in their office in 1 week. Physical exam: Vital signs reviewed and stable. General: Nontoxic, no distress and appears stated age. Derm: Skin warm and dry, normal coloration for ethnicity. Head: Atraumatic, normocephalic and symmetric. Eyes: EOM's intact, no lid lag, and anicteric sclera Mouth: no lip lesions, mucus membranes moist Cardiovascular: regular rate and rhythm with normal S1S2, no murmur, positive posterior tibial pulses bilaterally, and cap refill < 2 seconds. Lungs: Respirations even, regular, and unlabored on room air. Lungs CTA bilaterally, no rhonchi, no rales, no wheezing, and no accessory muscle usage. Abdominal: soft, nontender to palpation, no guarding, no appreciable organomegaly Ext: ROM intact. No gross muscle atrophy, no edema, no contractures Neuro: Speech clear, face symmetrical and CN II-XII grossly intact with no noted focal neuro deficits Psych: Alert and oriented to person, place, time, and situation. Appropriate and pleasant affect. A total of 35 minutes of time were spent preparing this complex discharge summary. Pt was discharged on 12/19/24 at 11:13 AM. Patient was seen independently by Nurse Practitioner. This document was prepared using [employer] dictation software. Please allow for errors in small machine bindery operator while rare they do occur. [place] NP rendered care for this patient independently, reviewed the findings and plan as documented in the note above. I did not physically speak with or examine the patient on this date. Patient Condition at Discharge: Stable Plan - Discharge Summary Discharge Rx Participant: No New Discharge Prescriptions: New Tamsulosin [Flomax] 0.4 mg PO PC-SUPPER 30 Days #30 cap Continue Multivitamins, Thera [Multivitamin (formulary)] 1 tab PO DAILY sitaGLIPtin [Januvia] 100 mg PO DAILY Vitamin B Complex 1 cap PO DAILY Pantoprazole [Protonix] 40 mg PO DAILY Clopidogrel [Plavix] 75 mg PO DAILY Aspirin EC [Ecotrin Low Dose] 81 mg PO DAILY lisinopriL [Zestril] 10 mg PO DAILY Glimepiride [Amaryl] 2 mg PO BID Acetaminophen Tab [Tylenol] 650 mg PO BID lisinopriL [Zestril] 5 mg PO HS Famotidine 20 mg PO BID amLODIPine [Norvasc] 10 mg PO DAILY Atorvastatin [Lipitor] 40 mg PO DAILY metFORMIN HCL 1,000 mg PO BID Alfuzosin HCl [Alfuzosin HCl ER] 10 mg PO HS Discharge Medication List Acetaminophen Tab [Tylenol] 650 mg PO BID 12/17/24 [History] Alfuzosin HCl [Alfuzosin HCl ER] 10 mg PO HS 12/17/24 [History] Aspirin EC [Ecotrin Low Dose] 81 mg PO DAILY 12/17/24 [History] Atorvastatin [Lipitor] 40 mg PO DAILY 12/17/24 [History] Clopidogrel [Plavix] 75 mg PO DAILY 12/17/24 [History] Famotidine 20 mg PO BID 12/17/24 [History] Glimepiride [Amaryl] 2 mg PO BID 12/17/24 [History] Multivitamins, Thera [Multivitamin (formulary)] 1 tab PO DAILY 12/17/24 [History] Pantoprazole [Protonix] 40 mg PO DAILY 12/17/24 [History] Vitamin B Complex 1 cap PO DAILY 12/17/24 [History] amLODIPine [Norvasc] 10 mg PO DAILY 12/17/24 [History] lisinopriL [Zestril] 5 mg PO HS 12/17/24 [History] lisinopriL [Zestril] 10 mg PO DAILY 12/17/24 [History] metFORMIN HCL 1,000 mg PO BID 12/17/24 [History] sitaGLIPtin [Januvia] 100 mg PO DAILY 12/17/24 [History] Tamsulosin [Flomax] 0.4 mg PO PC-SUPPER 30 Days #30 cap 12/19/24 [Rx] Follow up Appointment(s)/Referral(s): Mick Null MD [STAFF PHYSICIAN] - 1 Week (Please call and schedule first available appointment for posthospitalization follow-up and establishment with care with a primary care provider.) Juan Uriostegui MD [STAFF PHYSICIAN] - 12/27/24 10:30 am Patient Instructions/Handouts: Chest Pain (DC) Activity/Diet/Wound Care/Special Instructions: Activity: As tolerated. Take breaks as needed. Diet: Heart healthy and carb consistent diet. Avoid salts, or foods with hidden salts such as canned or boxed foods and frozen dinners. Extra salt makes your heart work harder and traps the fluid in your body for longer. Special Instructions: Take all of your medications as directed and remember to keep all of your doctor's appointments and follow-up as needed. Thank you for allowing us to participate in your care, it was truly a pleasure having you for our patient!!! Discharge Disposition: HOME SELF-CARE
== END 2024-12-19 11:53 | disposition home or self-care (01) ==
LOC: EC 10:43 → 6NMEDSUR 12:37
PROVIDERS: ADMIT Internal Medicine; ATTEND Internal Medicine
DX: R07.89 Other chest pain (principal); I16.0 Hypertensive urgency; T46.5X6A Underdosing of other antihypertensive drugs, initial encounter; Z91.138 Patient's unintentional underdosing of medication regimen for other reason; E11.65 Type 2 diabetes mellitus with hyperglycemia; E83.42 Hypomagnesemia; I25.10 Atherosclerotic heart disease of native coronary artery without angina pectoris; I10 Essential (primary) hypertension; I08.0 Rheumatic disorders of both mitral and aortic valves; E78.5 Hyperlipidemia, unspecified; K21.9 Gastro-esophageal reflux disease without esophagitis; N40.0 Benign prostatic hyperplasia without lower urinary tract symptoms; D69.6 Thrombocytopenia, unspecified; R79.89 Other specified abnormal findings of blood chemistry; E87.8 Other disorders of electrolyte and fluid balance, not elsewhere classified; R17 Unspecified jaundice; Z79.82 Long term (current) use of aspirin; Z79.02 Long term (current) use of antithrombotics/antiplatelets; Z79.84 Long term (current) use of oral hypoglycemic drugs; Z79.899 Other long term (current) drug therapy; Z95.1 Presence of aortocoronary bypass graft
CPT/HCPCS: 96372; 96365; 96366; 96375; 99285; 36415; 93005; 93306; 85379; 80061; 80053; 80048; 84443; 82248; 83735 ×2; 84484; 85025 ×2; 85610; 85730; 83036; 71046; 71275; G0378 ×3; J1650; J3475; Q9967; J1920